=== PATIENT | male | born 1990 | race Two or more races ===

== ENCOUNTER 2017-09-16 01:22 | Inpatient (IN) | payer MEDICAID ==
[2017-09-16] MEDS ORDERED: NORMAL SALINE 1000 ML 1,000 ML IV PRN ×3 (02:13→03:29)
--- NOTE | 2017-09-16 02:17 | ER Document Report ---
ED General - General Chief Complaint: Nausea Stated Complaint: DIZZY Time Seen by Provider: 09/16/17 02:11 Mode of Arrival: Stretcher Information source: Patient Notes: This is a 27-year-old man with a history of diabetes, DKA, depression that presents to the emergency room after fainting. Patient states he drank a Mountain Dew from the [employer] store and that the seal had been broken. He states he drank the soda at 5:30 PM he states later this evening, he felt weak and wobbly and briefly fainted at home. He denies any chest pain, abdominal pain or headache at this time. His medical history: Insulin requiring diabetes (on an insulin pump) Left eye blind Hypertension Depression Allergies: Penicillin TRAVEL OUTSIDE OF THE [place] IN LAST 30 DAYS: No - HPI Onset: Just prior to arrival Onset/Duration: Gradual Quality of pain: No pain Severity: None Pain Level: Denies Associated symptoms: denies: Chest pain, Fever, Shortness of breath Exacerbated by: Denies Relieved by: Denies Similar symptoms previously: Yes Recently seen / treated by doctor: Yes - Related Data Allergies/Adverse Reactions: Soap [From Betadine] Allergy (Mild, Verified 10/23/11 15:16) Hives Penicillins Allergy (Verified 06/29/15 11:19) povidone-iodine [From Betadine] Adverse Reaction (Mild, Verified 06/29/15 11:19) Hives bee Allergy (Uncoded 10/23/11 15:16) Past Medical History - General Information source: Patient - Social History Smoking Status: Never Smoker Cigarette use (# per day): No Chew tobacco use (# tins/day): No Frequency of alcohol use: None Drug Abuse: None Lives with: Spouse/Significant other Family History: Reviewed & Not Pertinent Patient has suicidal ideation: No Patient has homicidal ideation: No - Past Medical History Cardiac Medical History: Reports: None Pulmonary Medical History: Denies: Hx Tuberculosis Neurological Medical History: Denies: Hx Seizures Endocrine Medical History: Reports: Hx Diabetes Mellitus Type 1 Psychiatric Medical History: Reports: Hx Depression Traumatic Medical History: Reports: Hx Fractures - BILAT ANKLES Surgical Hx: Negative Past Surgical History: Denies: Hx Pacemaker - Immunizations Hx Pneumococcal Vaccination: 10/25/11 Review of Systems - Review of Systems Constitutional: denies: Chills, Fever EENT: No symptoms reported Cardiovascular: See HPI Respiratory: No symptoms reported Gastrointestinal: No symptoms reported Genitourinary: No symptoms reported Male Genitourinary: No symptoms reported Musculoskeletal: No symptoms reported Skin: No symptoms reported Hematologic/Lymphatic: No symptoms reported Neurological/Psychological: No symptoms reported Physical Exam - Vital signs Vitals: Pulse BP Pulse Ox 121 H 70/32 L 99 09/16/17 01:35 09/16/17 01:35 09/16/17 01:35 Notes: Physical exam: GENERAL: 27-year-old man, alert and oriented 3, orthostatic HEAD: Atraumatic, normocephalic. EYES: Pupils equal round and reactive to light, extraocular movements intact, sclera anicteric, conjunctiva are normal. ENT: TMs normal, nares patent, oropharynx clear without exudates. Moist mucous membranes. NECK: Normal range of motion, supple without obvious mass or JVD. LUNGS: Breath sounds clear to auscultation bilaterally and equal. No wheezes rales or rhonchi. HEART: Regular rate and rhythm without murmurs, rubs or gallops. ABDOMEN: Soft, normoactive bowel sounds. No tenderness to palpation. No guarding, no rebound. No masses appreciated. EXTREMITIES: Normal range of motion, no pitting or edema. No clubbing or cyanosis. NEUROLOGICAL: Cranial nerves II through XII grossly intact. Normal speech, moving all extremities. PSYCH: Normal mood, normal affect. SKIN: Warm, Dry, normal turgor, no rashes or lesions noted. Course - Re-evaluation Re-evalutation: 09/16/17 03:27 On reassessment, the patient is starting to feel better. His blood pressure is 100/63 with a pulse of 95. His oxygen saturation is 99% on room air is respiratory rate is 18. His labs do show some acute renal failure component. I think he probably became volume depleted and continued with his antihypertensive medicines making him hypotensive. I think this contributed to both his acute renal failure as well as his syncopal episode this evening. In any event, he has not had any evidence of infection or any abdominal pain. Plan will be to hold the CECE inhibitor and continue the IV fluids and follow his kidney function. 09/16/17 03:30 Note: Patient's blood sugar was 64. He is requesting to eat and drink and we will allow him to do so. - Vital Signs Vital signs: Temp Pulse Resp BP Pulse Ox 121 H 70/32 L 99 09/16/17 01:35 09/16/17 01:35 09/16/17 01:35 - Laboratory Result Diagrams: 09/16/17 02:38 09/16/17 02:38 Laboratory results interpreted by me: 09/16/17 09/16/17 02:38 02:38 WBC 10.8 H BUN 27 H Creatinine 2.09 H Est GFR ( Amer) 46 L Est GFR (Non-Af Amer) 38 L Glucose 64 L ALT 13 L - EKG Interpretation by Me Rate: Normal Rhythm: NSR - EKG shows normal sinus rhythm with a ventricular rate of 96, no acute ST-T wave changes Discharge - Discharge Clinical Impression: Orthostatic hypotension, Syncope, Acute renal failure Condition: Stable Disposition: ADMITTED INPATIENT Admitting Provider: Hospitalist - Dr Card Unit Admitted: Telemetry Referrals: LORA FARIA MD [Primary Care Provider] - Follow up as needed
[2017-09-16 02:55] LABS: ABSOLUTE BASOPHILS # (AUTO) 0.1 10^3/uL (0.0-0.2); ABSOLUTE EOSINOPHILS # (AUTO) 0.1 10^3/uL (0.0-0.6); ABSOLUTE MONOCYTES (AUTO) 1.2 10^3/uL (0.1-1.4); ABSOLUTE NEUT (AUTO) 7.4 10^3/uL (1.7-8.2); BASOPHILS % (AUTO) 0.6 % (0-2); EOSINOPHILS % (AUTO) 1.2 % (0-6); HEMATOCRIT 40.1 % (37.9-51.0); HEMOGLOBIN 13.9 g/dL (13.5-17.0); LYMPHOCYTES % (AUTO) 18.5 % (13-45); MEAN CORPUSCULAR HEMOGLOBIN 30.7 pg (27.0-33.4); MEAN CORPUSCULAR HGB CONC 34.5 g/dL (32.0-36.0); MEAN CORPUSCULAR VOLUME 89 fl (80-97); MONOCYTES % (AUTO) 11.5 % (3-13); PLATELET COUNT 392 10^3/uL (150-450); RED BLOOD COUNT 4.51 10^6/uL (4.35-5.55); RED CELL DISTRIBUTION WIDTH 13.8 % (11.5-14.0); SEGMENTED NEUTROPHILS % (AUTO) 68.2 % (42-78); TOTAL CELLS COUNTED % (AUTO) 100 %; WHITE BLOOD COUNT 10.8 10^3/uL (4.0-10.5)
[2017-09-16 03:15] LABS: ALANINE AMINOTRANSFERASE 13 U/L (21-72); ALBUMIN 3.8 g/dL (3.5-5.0); ALKALINE PHOSPHATASE 96 U/L (38-126); ANION GAP 15 (5-19); ASPARTATE AMINO TRANSFERASE 25 U/L (17-59); BILIRUBIN,DIRECT 0.2 mg/dL (0.0-0.4); BILIRUBIN,TOTAL 0.2 mg/dL (0.2-1.3); BLOOD UREA NITROGEN 27 mg/dL (7-20); CARBON DIOXIDE 27 mmol/L (22-30); CHLORIDE 102 mmol/L (98-107); GLUCOSE 64 mg/dL (75-110); POTASSIUM 3.6 mmol/L (3.6-5.0); SODIUM 144.4 mmol/L (137-145)
[2017-09-16] MEDS ORDERED: ALBUTEROL SULFATE 0.083% NEB 2.5 MG/3 ML AMPUL NEB PRN (03:28)
[2017-09-16] MEDS ORDERED: PROMETHAZINE HCL INJ 25 MG/1 ML VIAL IV PRN (03:28)
[2017-09-16] MEDS ORDERED: NICOTINE 14 MG/24 HR PATCH.TD24 TD PRN (05:17)
[2017-09-16] MEDS ORDERED: DEXTROSE 40% GEL 15 GM TUBE PO PRN ×2 (05:18)
[2017-09-16] MEDS ORDERED: GLUCAGON,HUMAN RECOMB 1 MG INJ IM PRN (05:18)
[2017-09-16] MEDS ORDERED: DEXTROSE 50%-WATER 25 GM/50 ML DISP.SYRIN IV PRN ×2 (05:18)
--- NOTE | 2017-09-16 05:34 | RADIOLOGY REPORT (SQ) ---
EXAM DESCRIPTION: CHEST SINGLE VIEW CLINICAL HISTORY: 27 years Male, near syncope COMPARISON: June 30, 2015 FINDINGS: Normal lung volume, clear parenchyma, normal cardiac silhouette, and intact bony thorax. IMPRESSION: No acute cardiopulmonary findings.
--- NOTE | 2017-09-16 05:55 | PDOC H&P ---
History of Present Illness Admission Date/PCP: LORA FARIA MD Patient complains of: Syncope and collapse 1. History of Present Illness: YANET CHATMAN is a 27 year old male smoker with history of type 1 diabetes mellitus (brittle diabetic on insulin pump) and hypertension was admitted with above-mentioned complaint. The patient's mentation seems to be slow so I am not sure about the accuracy of his history. He said that around 5 PM his humolog insulin pump alerted him that his blood sugar was 32. He started drinking Mountain Dew but he lost consciousness. When he recovered, his friend helped him up. taking to help him get out. He denies any fever, chills, chest pain, shortness of breath, cough, abdominal pain, diarrhea or constipation or any urinary symptoms. He just felt generally weak. In the ED, his temperature was not recorded, heart rate 121, respiratory rate 12 , blood pressure was 70/32 with oxygen saturation of 99% on room air. His WBC was 10.8 with hemoglobin of 13.9. His BUN/creatinine was 27/2.09 (up from 18/ 1.16 on 06/30/2015), his blood glucose was 64. His UA is pending but his chest x- ray did not show any acute findings. He received 1 L of normal saline with improvement of his blood pressure up to 100/63. Past Medical History Cardiac Medical History: Reports: None, Hypertension Pulmonary Medical History: Denies: Tuberculosis EENT Medical History: Reports: Eyes - left eye blindness (scheduled for surgery soon). Neurological Medical History: Denies: Seizures Endocrine Medical History: Reports: Diabetes Mellitus Type 1 Psychiatric Medical History: Reports: Depression Past Surgical History Past Surgical History: Reports: None Denies: Pacemaker Social History Lives with: Spouse/Significant other Smoking Status: Current Every Day Smoker Cigarettes Packs Per Day: 0.5 - 3 cigarettes a day for 11 years. Frequency of Alcohol Use: Rare Hx Recreational Drug Use: No - He smokes marijuana and last time he did he smoked was about a month ago. Hx Prescription Drug Abuse: No - Advance Directive Resuscitation Status: Full Code Family History Family History: Reviewed & Not Pertinent Parental Family History Reviewed: Yes - Maternal grandfather: CAD, Maternal aunt : Diabetes. Children Family History Reviewed: No Sibling(s) Family History Reviewed.: Yes Medication/Allergy Home Medications: Trazodone HCl 150 mg PO QHS 10/23/11 Azithromycin 500 mg PO DAILY #7 tablet 06/30/15 Fluticasone Propionate [Flonase Nasal [place] 50 Mcg/[place] 16 gm] 1 spray NASL Q12 #1 spray.pump 06/30/15 Lisinopril [Prinivil 10 mg Tablet] 10 mg PO Q12 #60 tablet 06/30/15 Loratadine [Claritin 10 mg Tablet] 10 mg PO QHS #30 tablet 06/30/15 Trazodone HCl [Desyrel] 100 mg PO QHS #30 tablet 06/30/15 Allergies/Adverse Reactions: Soap [From Betadine] Allergy (Mild, Verified 10/23/11 15:16) Hives Penicillins Allergy (Verified 06/29/15 11:19) povidone-iodine [From Betadine] Adverse Reaction (Mild, Verified 06/29/15 11:19) Hives bee Allergy (Uncoded 10/23/11 15:16) Review of Systems ROS unobtainable: Other - Pertinent positives and negatives as detailed in the HPI. Physical Exam Vital Signs: Temp Pulse Resp BP Pulse Ox 121 H 70/32 L 99 09/16/17 01:35 09/16/17 01:35 09/16/17 01:35 Intake & Output 09/14/17 09/15/17 09/16/17 06:59 06:59 06:59 Weight 60.5 kg General appearance: PRESENT: no acute distress Head exam: PRESENT: atraumatic, normocephalic Eye exam: PRESENT: PERRLA - right eye., other - left eye blindnes. Mouth exam: PRESENT: moist, neck supple Neck exam: PRESENT: full ROM. ABSENT: JVD Respiratory exam: PRESENT: clear to auscultation nikole. ABSENT: rales, rhonchi, wheezes Cardiovascular exam: PRESENT: +S1, +S2, tachycardia Pulses: PRESENT: normal dorsalis pedis pul GI/Abdominal exam: PRESENT: normal bowel sounds. ABSENT: distended, rebound, rigid, tenderness Rectal exam: PRESENT: deferred Neurological exam: PRESENT: alert, altered, awake, oriented to person, oriented to place, oriented to time, oriented to situation. ABSENT: CN II-XII grossly intact - Except CN II and III left eye., motor sensory deficit Skin exam: PRESENT: intact, warm. ABSENT: erythema, rash Results Laboratory Results: 09/16/17 02:38 09/16/17 02:38 09/16/17 09/16/17 02:38 02:38 WBC 10.8 H RBC 4.51 Hgb 13.9 Hct 40.1 MCV 89 MCH 30.7 MCHC 34.5 RDW 13.8 Plt Count 392 Seg Neutrophils % 68.2 Lymphocytes % 18.5 Monocytes % 11.5 Eosinophils % 1.2 Basophils % 0.6 Absolute Neutrophils 7.4 Absolute Lymphocytes 2.0 Absolute Monocytes 1.2 Absolute Eosinophils 0.1 Absolute Basophils 0.1 Sodium 144.4 Potassium 3.6 Chloride 102 Carbon Dioxide 27 Anion Gap 15 BUN 27 H Creatinine 2.09 H Est GFR ( Amer) 46 L Est GFR (Non-Af Amer) 38 L Glucose 64 L Calcium 10.0 Total Bilirubin 0.2 AST 25 ALT 13 L Alkaline Phosphatase 96 Total Protein 7.0 Albumin 3.8 Assessment & Plan - Diagnosis (1) Syncope and collapse Is this a current diagnosis for this admission?: Yes Plan: Secondary to orthostasis given hypotension on admission and/or hypoglycemia. We will continue aggressive hydration and hold lisinopril. According to the patient, he usually is hypertensive so will continue to monitor. (2) MARIA VICTORIA (acute kidney injury) Is this a current diagnosis for this admission?: Yes Plan: With creatinine of 2.09 up from 1.16 on 06/30/2015. Possibly secondary to prerenal and/or renal (ATN since hypotensive), questionable post renal. Will continue IV hydration and check UA, urine osm, sodium, creatinine and protein. Will recheck BMP after IV hydration and monitor kidney function and urine output. Will avoid nephrotoxic medications for now (holding lisinopril). (3) Type 1 diabetes mellitus Qualifiers: Diabetes mellitus complication status: with unspecified complications Qualified Code(s): E10.8 - Type 1 diabetes mellitus with unspecified complications Is this a current diagnosis for this admission?: Yes Plan: Brittle diabetic on Humalog pump. He may be noncompliant with his diabetic diet. The patient may use his own insulin pump. Accu-Cheks qACHS. (4) Hypotension Is this a current diagnosis for this admission?: Yes Plan: On admission, unclear etiology at this time. Will follow up UA and check UDS ( he has history of marijuana use). His chest x-ray did not show any acute findings. (5) Smoker Is this a current diagnosis for this admission?: Yes Plan: 3 cigarettes a day, he does not seem motivated to quit. Nicotine patch. - Time Time Spent: 50 to 70 Minutes - Inpatient Certification Based on my medical assessment, after consideration of the patient's comorbidities, presenting symptoms, or acuity I expect that the services needed warrant INPATIENT care.: Yes I certify that my determination is in accordance with my understanding of Medicare's requirements for reasonable and necessary INPATIENT services [42 CFR 412.3e].: Yes
[2017-09-16 06:12] LABS: APPEARANCE,URINE SLIGHTLY-CLOUDY; BILIRUBIN,URINE NEGATIVE (NEGATIVE); COLOR,URINE YELLOW; GLUCOSE, URINE >=500 mg/dL (NEGATIVE); KETONES,URINE NEGATIVE (NEGATIVE); LEUKOCYTE ESTERASE,URINE NEGATIVE (NEGATIVE); NITRITE,URINE NEGATIVE (NEGATIVE); PROTEIN,URINE >=500 mg/dL (NEGATIVE); URINE SPECIFIC GRAVITY 1.014; UROBILINOGEN,URINE NEGATIVE mg/dL (<2.0)
[2017-09-16 06:28] LABS: URINE AMPHETAMINES SCREEN NEGATIVE; URINE BARBITURATES SCREEN NEGATIVE; URINE BENZODIAZEPINES SCREEN NEGATIVE; URINE COCAINE SCREEN NEGATIVE; URINE MARIJUANA (THC) SCREEN NEGATIVE; URINE METHADONE SCREEN NEGATIVE; URINE PHENCYCLIDINE SCREEN NEGATIVE
[2017-09-16 06:58] LABS: URINE CREATININE 126.1 mg/dL (24-392)
[2017-09-16 07:05] LABS: URINE PROTEIN 346.8 mg/dL (<12)
--- NOTE | 2017-09-16 07:55 | EKG REPORT ---
SEVERITY:- ABNORMAL ECG - SINUS RHYTHM PROBABLE LEFT ATRIAL ABNORMALITY PROBABLE LEFT VENTRICULAR HYPERTROPHY PROLONGED QT INTERVAL : Confirmed by: Kaden Hankins MD 16-Sep-2017 07:54:46
[2017-09-16 11:06] LABS: BLOOD UREA NITROGEN 27 mg/dL (7-20); CALCIUM 9.4 mg/dL (8.4-10.2); CARBON DIOXIDE 27 mmol/L (22-30)
[2017-09-16 11:18] LABS: ANION GAP 11 (5-19); CHLORIDE 99 mmol/L (98-107); SODIUM 136.8 mmol/L (137-145)
[2017-09-16 11:20] LABS: POTASSIUM 5.5 mmol/L (3.6-5.0)
[2017-09-16 11:21] LABS: GLUCOSE 467 mg/dL (75-110)
--- NOTE | 2017-09-16 11:46 | PDOC PROGRESS REPORT ---
Subjective Progress Note for:: 09/16/17 Subjective:: I saw the patient today and he states that he is feeling much better than when he came into the hospital yesterday. His severe hyperglycemia has resolved. I spoke at length with the patient about how he manages his sugar at home. He states that he is frequently hospitalized at the Hospital in [place]. He follows with Dr. Mattie Hankins as his canned food reconditioning inspector he states that every time he goes into the hospital in [place] that they take him off of his pump in place him on Lantus and sliding scale insulin and get his blood sugars under good control and then send him out on his pump with the exact same readings as they have used before. He was initially asking if we could do that here in the hospital. After a long discussion with him we have made a decision to keep his pump in place. I would like for him to bolus as he normally would at home and have asked the nursing staff to tell the patient what his blood sugars are in for them to record his boluses as he takes them. I am reluctant to send him home on the exact same basal rates that he was on prior to coming into the hospital without making any changes as his blood sugar was in the low 20s. He states that yesterday he just did not feel well. He denies any recent fever chills. He states that he has recently quit smoking and he was commended for that. He has had no increased shortness of breath or cough. He has had no chest pain or heart palpitations. No nausea, vomiting or diarrhea. No abdominal pain. No urinary complaints. Reason For Visit: MARIA VICTORIA/NEAR SYNCOPE. Physical Exam Vital Signs: Temp Pulse Resp BP Pulse Ox 98.1 F 121 H 16 116/73 95 09/16/17 07:08 09/16/17 01:35 09/16/17 09:00 09/16/17 09:00 09/16/17 09:00 General appearance: PRESENT: thin, other - Somewhat ill-appearing Head exam: PRESENT: atraumatic, normocephalic Mouth exam: PRESENT: moist, tongue midline Respiratory exam: PRESENT: clear to auscultation nikole. ABSENT: rales, rhonchi, wheezes Cardiovascular exam: PRESENT: RRR. ABSENT: diastolic murmur, rubs, systolic murmur GI/Abdominal exam: PRESENT: normal bowel sounds, soft. ABSENT: distended, guarding, mass, organolmegaly, rebound, tenderness Rectal exam: PRESENT: deferred Extremities exam: PRESENT: full ROM. ABSENT: calf tenderness, clubbing, pedal edema Musculoskeletal exam: PRESENT: ambulatory Neurological exam: PRESENT: alert, awake, oriented to person, oriented to place , oriented to time, oriented to situation, CN II-XII grossly intact. ABSENT: motor sensory deficit Psychiatric exam: PRESENT: appropriate affect, normal mood. ABSENT: homicidal ideation, suicidal ideation Skin exam: PRESENT: dry, intact, warm. ABSENT: cyanosis, rash Results Laboratory Results: 09/16/17 10:26 09/16/17 09/16/17 09/16/17 04:16 04:16 10:26 Sodium 136.8 L Potassium 5.5 H D Chloride 99 Carbon Dioxide 27 Anion Gap 11 BUN 27 H Creatinine 1.81 H Est GFR ( Amer) 54 L Est GFR (Non-Af Amer) 45 L Glucose 467 H* Calcium 9.4 Phosphorus 5.0 H Urine Color YELLOW Urine Appearance SLIGHTLY-CLOUDY Urine pH 5.0 Ur Specific [place] 1.014 Urine Protein >=500 H Urine Glucose (UA) >=500 H Urine Ketones NEGATIVE Urine Blood SMALL H Urine Nitrite NEGATIVE Ur Leukocyte Esterase NEGATIVE Urine WBC (Auto) 5 Urine RBC (Auto) 1 Urine Osmolality 339 Impressions: Chest X-Ray 09/16/17 03:14 IMPRESSION: No acute cardiopulmonary findings. Assessment & Plan - Diagnosis (1) Encephalopathy Is this a current diagnosis for this admission?: Yes Plan: Secondary to severe hypotension and hypoglycemia. Resolved (2) Syncope Is this a current diagnosis for this admission?: Yes Plan: Likely due to severe hypotension. He has had no further episodes. (3) Acute renal failure Is this a current diagnosis for this admission?: Yes Plan: His records are reviewed. He usually does not have any underlying kidney disease. His acute renal failure could be due to volume depletion and ATN due to severe hypotension as well as CECE inhibitor. I repeated a chemistry panel this morning and his creatinine is down to 1.8. We will continue IV fluids today and check a level in the morning. He may need to start seeing a weigher and charger as an outpatient. (4) Hypoglycemia Is this a current diagnosis for this admission?: Yes Plan: The patient has very brittle diabetes. Please see discussion above. We are going to let the patient use his insulin pump as he normally would at home here in the hospital and see if he has any further severe hyperglycemia or hypoglycemic events. (5) Type 1 diabetes mellitus Qualifiers: Diabetes mellitus complication status: with unspecified complications Qualified Code(s): E10.8 - Type 1 diabetes mellitus with unspecified complications Is this a current diagnosis for this admission?: Yes Plan: He follows with Dr. Mattie Hankins in [place]. He apparently has a new insulin pump that would be arriving today as it was felt that his previous pump was not working properly. Certainly we need to get him back to her office as soon as possible when he gets out of the hospital. I am going to hold his CECE inhibitor for now due to his severe hypotension as well as his acute renal failure (6) Tobacco abuse Is this a current diagnosis for this admission?: Yes Plan: The patient states that he has quit smoking over the past 2 weeks. He is commended for this. He does not want to have a nicotine patch at this point (7) Full code status Is this a current diagnosis for this admission?: Yes - Time Time Spent with patient: 35 or more minutes - Inpatient Certification Medical Necessity: Other - Inpatient hospitalization remains necessary. The patient needs ongoing IV fluids. We need to see if he has any further events with his blood sugar either hypoglycemia or severe hyperglycemia on his current basal rates of his pump. If he improves he can likely be discharged tomorrow.
--- NOTE | 2017-09-16 12:41 | Physician Advisory Note ---
Physician Advisor ProgressNote .: Pursuant to the plan for [facility], I have reviewed the medical record for this patient. Physician Advisor Statement: Please consider documenting, if you agree: 1. "acute metabolic encephalopathy due to hypotension & hypogycemia, evidenced by " (or "ruled out", or ...) - Pt had syncope, then regained consciousness, & has been alert here from what this reviewer has seen - did he also have a time of encephalopathy too? Status: Medicaid pt, brittle DM-1 w/insulin pump, HTN on Prinivil, tobacco abuse 'til recently, Lt eye blindness, frequent hospitalizations presented at 01 :29 this AM with profound hypotension & tachycardia, orthostasis, after glucose monitor reported glc of 32, and despite drinking Mtn Dew he had weakness, & episode of syncope/LOC. After 1L IVF, pt started to feel somewhat better ( relatively speaking), w/ HR95, BP 100/63, with MARIA VICTORIA & glc of 64. After almost 12 hours of tx with IVF & glucose mgmt, pt's renal fn still far from his baseline of 1.16, & attending is concerned that the outpt basal dosing by insulin pump may be too high and precipitating repeated severe dangerous hypo/ hyperglycemia. Therefore, needs to monitor glc levels w/usual insulin tx by pump for at least 24 hours more in hospital to determine its current safety ( knowing, of course, that pt will likely not be as active while in hospital, so may still need less insulin basal during the day at home than he does in hospital) - as well as to respond to further dangerous hypo/hyperglycemia that develops. Currently severely hyperglycemic, still in MARIA VICTORIA, with mild acute hyponatremia now , & hyperkalemia (which may normalize with continued IVF not containing K). U/A indicates tremendous proteinuria. Pt still has recurrent tachycardia, still relatively hypotensive compared to his baseline (BP was 120s-150s/80s-100s during last adm), likely still quite volume depleted. Attending continuing IVF @150 to help MARIA VICTORIA/hyperkalemia, volume depletion, & hyperglycemia. Appropriate for Inpatient status. CK
[2017-09-17] MEDS: ACETAMINOPHEN 325 MG TABLET PO PRN (00:44)
[2017-09-17 07:48] LABS: HEMATOCRIT 35.9 % (37.9-51.0); HEMOGLOBIN 12.5 g/dL (13.5-17.0); MEAN CORPUSCULAR HEMOGLOBIN 30.7 pg (27.0-33.4); MEAN CORPUSCULAR HGB CONC 34.9 g/dL (32.0-36.0); MEAN CORPUSCULAR VOLUME 88 fl (80-97); PLATELET COUNT 345 10^3/uL (150-450); RED BLOOD COUNT 4.08 10^6/uL (4.35-5.55); RED CELL DISTRIBUTION WIDTH 13.7 % (11.5-14.0); WHITE BLOOD COUNT 6.2 10^3/uL (4.0-10.5)
[2017-09-17 08:10] LABS: ALANINE AMINOTRANSFERASE 17 U/L (21-72); ALBUMIN 3.4 g/dL (3.5-5.0); ALKALINE PHOSPHATASE 89 U/L (38-126); ANION GAP 9 (5-19); ASPARTATE AMINO TRANSFERASE 17 U/L (17-59); BILIRUBIN,DIRECT 0.3 mg/dL (0.0-0.4); BILIRUBIN,TOTAL 0.3 mg/dL (0.2-1.3); BLOOD UREA NITROGEN 25 mg/dL (7-20); CALCIUM 9.5 mg/dL (8.4-10.2); CARBON DIOXIDE 26 mmol/L (22-30); CHLORIDE 105 mmol/L (98-107); CHOLESTEROL 281.37 mg/dL (0-200); GLUCOSE 183 mg/dL (75-110); SODIUM 140.2 mmol/L (137-145); TOTAL PROTEIN 6.4 g/dL (6.3-8.2); TRIGLYCERIDES 139 mg/dL (<150)
[2017-09-17 08:20] LABS: DIRECT LDL 217 mg/dL (<100)
[2017-09-17 08:22] LABS: POTASSIUM 4.4 mmol/L (3.6-5.0)
[2017-09-17] MEDS ORDERED: INSULIN GLARGINE,HUM.REC.ANLOG 1,000 UNIT/10 ML UNIT SUBCUT ONE ×2 (08:37→10:00)
[2017-09-17] MEDS ORDERED: HYDRALAZINE HCL INJ/PF 20 MG/1 ML SDV ONE (08:37)
[2017-09-17] MEDS ORDERED: INSULIN LISPRO 100 UNIT/ML 3 ML VIAL ONE (08:38)
[2017-09-17] MEDS ORDERED: INSULIN GLARGINE,HUM.REC.ANLOG 300 UNIT/3 ML INSULN.PEN SUBCUT ONE (09:15)
[2017-09-17] MEDS ORDERED: INSULIN LISPRO 100 UNIT/ML 3 ML VIAL SUBCUT ONE ×2 (12:30→18:30)
--- NOTE | 2017-09-17 13:03 | EKG REPORT ---
SEVERITY:- ABNORMAL ECG - SINUS RHYTHM PROBABLE LEFT ATRIAL ABNORMALITY PROBABLE LEFT VENTRICULAR HYPERTROPHY : Confirmed by: Kaden Hankins MD 17-Sep-2017 13:03:11
[2017-09-17] MEDS: INSULIN LISPRO 100 UNIT/ML 3 ML VIAL SUBCUT PRN ×2 (17:48→22:05)
[2017-09-17] MEDS: ERYTHROMYCIN 0.5% OPH OINTMENT 3.5 GM TUBE OU SCH ×2 (17:49→22:05)
[2017-09-17] MEDS ORDERED: DEXTROSE 40% GEL 15 GM TUBE PO PRN (17:52)
--- NOTE | 2017-09-17 18:02 | PDOC PROGRESS REPORT ---
Subjective Progress Note for:: 09/17/17 Subjective:: The patient is an unfortunate 27-year-old male who is had diabetes mellitus since age 3. He is a brittle diabetic on an insulin pump. He follows with Dr. Hankins in [place] from endocrinology. The patient presented to the emergency room with severe hypoglycemia as well as hypotension. He was found to have an acute kidney injury and was referred for admission. The patient severe hypoglycemia has since resolved. Yesterday when I saw the patient I had a long discussion with him. Apparently there are some concerns about how well his current pump is working. A new one has been ordered and is supposed to be delivered to the house this week. He states that he has frequent hospitalizations in [place] and that they always place him on Lantus and sliding scale coverage in the hospital and send him home on his pump with no changes being made. The patient's blood sugar was in the low 20s. I initially suggested that we check his blood sugar and he boluses he would at home and we can see if we need to make some changes to his basal rates. He was in agreement with this. The patient's blood sugars have been remarkedly high over the past 24 hours. This morning he lost his insulin site and has no further supplies with him to replace. 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 He is in agreement with this. He states that he is feeling better since he came to the hospital. He has had no further dizzy spells. No further hypoglycemia. No fever chills. No chest pain, shortness of breath or cough. No nausea, vomiting or diarrhea. No dysuria or hematuria. He does have urinary frequency due to his hyperglycemia. Reason For Visit: MARIA VICTORIA/NEAR SYNCOPE. Physical Exam Vital Signs: Temp Pulse Resp BP Pulse Ox 98.5 F 93 18 157/100 H 98 09/17/17 16:21 09/17/17 16:21 09/17/17 16:21 09/17/17 16:21 09/17/17 16:21 Intake & Output 09/16/17 09/17/17 09/18/17 06:59 06:59 06:59 Intake Total 2466 660 Output Total 1600 2260 Balance 866 -1600 Weight 60.5 kg 60.5 kg Results Laboratory Results: 09/17/17 07:00 09/17/17 07:00 09/17/17 09/17/17 09/17/17 07:00 07:00 07:00 WBC 6.2 RBC 4.08 L Hgb 12.5 L Hct 35.9 L MCV 88 MCH 30.7 MCHC 34.9 RDW 13.7 Plt Count 345 Sodium 140.2 Potassium 4.4 D Chloride 105 Carbon Dioxide 26 Anion Gap 9 BUN 25 H Creatinine 1.48 H Est GFR ( Amer) > 60 Est GFR (Non-Af Amer) 56 L Glucose 183 H Calcium 9.5 Magnesium 2.0 Total Bilirubin 0.3 AST 17 ALT 17 L Alkaline Phosphatase 89 Total Protein 6.4 Albumin 3.4 L Triglycerides 139 Cholesterol 281.37 H LDL Cholesterol Direct 217 H VLDL Cholesterol 28.0 HDL Cholesterol 42 TSH 0.49 Impressions: Chest X-Ray 09/16/17 03:14 IMPRESSION: No acute cardiopulmonary findings. Assessment & Plan - Diagnosis (1) Type 1 diabetes mellitus Qualifiers: Diabetes mellitus complication status: with unspecified complications Qualified Code(s): E10.8 - Type 1 diabetes mellitus with unspecified complications Is this a current diagnosis for this admission?: Yes Plan: The patient has brittle type 1 diabetes. The patient has now lost his insulin pump site and has no further supplies with him here at the hospital. I am going to start the patient on 15 units of Lantus twice daily. The patient received 12 units this morning and his blood sugars have been remarkably uncontrolled all day long. He will receive 15 units this evening and again in the morning. We will start the patient on 10 units of NovoLog 3 times daily before meals and continue his sliding scale. We will see how much is 24 hour requirements are and make further adjustments tomorrow. (2) Encephalopathy Is this a current diagnosis for this admission?: Yes Plan: Secondary to severe hypotension and hypoglycemia. Resolved (3) Syncope Is this a current diagnosis for this admission?: Yes Plan: Likely due to severe hypotension. He has had no further episodes. (4) Acute renal failure Is this a current diagnosis for this admission?: Yes Plan: His records are reviewed. He usually does not have any underlying kidney disease. His acute renal failure could be due to volume depletion and ATN due to severe hypotension as well as CECE inhibitor. His creatinine is trending downward. We will continue IV fluids today and check a level in the morning. He may need to start seeing a nutrition aide as an outpatient. (5) Hypoglycemia Is this a current diagnosis for this admission?: Yes Plan: The patient has very brittle diabetes. Please see discussion above. Unfortunately we cannot use his insulin pump here in the hospital as we have no supplies. See discussion above. He has had no further hypoglycemic episodes. (6) Tobacco abuse Is this a current diagnosis for this admission?: Yes Plan: The patient states that he has quit smoking over the past 2 weeks. He is commended for this. He does not want to have a nicotine patch at this point (7) Full code status Is this a current diagnosis for this admission?: Yes - Time Time Spent with patient: 25-34 minutes - Inpatient Certification Medical Necessity: Other - Inpatient hospitalization remains necessary. The patient still has an acute kidney injury requiring parenteral fluids. His blood sugars are markedly uncontrolled and we are going to try to get him stabilized prior to him leaving the hospital. Timing of disposition will be determined by his clinical course. He does meet inpatient criteria and his status has been changed.
[2017-09-17] MEDS: INSULIN GLARGINE,HUM.REC.ANLOG 300 UNIT/3 ML INSULN.PEN SUBCUT SCH (22:05)
[2017-09-17] MEDS ORDERED: NITROGLYCERIN 2% OINTMENT 1 GM PACKET TP ONE ×2 (22:30→23:35)
[2017-09-17] MEDS ORDERED: NITROGLYCERIN 2% OINTMENT 1 GM PACKET ONE ×2 (22:47→23:32)
[2017-09-17 23:13] LABS: CREATINE KINASE MB 2.09 ng/mL (<4.55); TROPONIN I 0.101 ng/mL
[2017-09-17] MEDS ORDERED: CLOPIDOGREL BISULFATE 300 MG TABLET PO ONE (23:32)
[2017-09-17] MEDS ORDERED: METOPROLOL TARTRATE PF/INJ 5 MG/5 ML SDV IV ONE ×2 (23:32→23:35)
[2017-09-17] MEDS ORDERED: ASPIRIN 81 MG TABLET, CHEWABLE PO ONE (23:32)
[2017-09-17] MEDS ORDERED: CLOPIDOGREL BISULFATE 75 MG TABLET ONE (23:40)
[2017-09-17] MEDS ORDERED: ENOXAPARIN SODIUM INJ 60 MG/0.6 ML DISP.SYRIN SUBCUT ONE (23:45)
[2017-09-17] MEDS: MORPHINE SULFATE 10 MG/ML INJ IV PRN (23:47)
[2017-09-18 01:08] LABS: CREATINE KINASE MB 2.11 ng/mL (<4.55)
[2017-09-18 01:24] LABS: TROPONIN I 0.1 ng/mL
[2017-09-18] MEDS: ERYTHROMYCIN 0.5% OPH OINTMENT 3.5 GM TUBE OU SCH ×4 (02:20→22:22)
[2017-09-18] MEDS: MORPHINE SULFATE 10 MG/ML INJ IV PRN (04:06)
[2017-09-18 05:25] LABS: CREATINE KINASE MB 2.57 ng/mL (<4.55); TROPONIN I 0.104 ng/mL
--- NOTE | 2017-09-18 08:00 | EKG REPORT ---
SEVERITY:- NORMAL ECG - SINUS RHYTHM : Confirmed by: Kaden Hankins MD 18-Sep-2017 07:58:21
[2017-09-18] MEDS: INSULIN LISPRO 100 UNIT/ML 3 ML VIAL SUBCUT SCH ×3 (08:23→17:11)
[2017-09-18 09:27] LABS: APPEARANCE,URINE CLEAR; BILIRUBIN,URINE NEGATIVE (NEGATIVE); COLOR,URINE STRAW; GLUCOSE, URINE 50 mg/dL (NEGATIVE); KETONES,URINE NEGATIVE (NEGATIVE); LEUKOCYTE ESTERASE,URINE NEGATIVE (NEGATIVE); NITRITE,URINE NEGATIVE (NEGATIVE); PROTEIN,URINE >=500 mg/dL (NEGATIVE); URINE SPECIFIC GRAVITY 1.011; UROBILINOGEN,URINE NEGATIVE mg/dL (<2.0)
[2017-09-18] MEDS: ENOXAPARIN SODIUM INJ 60 MG/0.6 ML DISP.SYRIN SUBCUT SCH ×2 (11:34→22:22)
[2017-09-18] MEDS: INSULIN GLARGINE,HUM.REC.ANLOG 300 UNIT/3 ML INSULN.PEN SUBCUT SCH ×2 (11:34→22:22)
[2017-09-18] MEDS: METOCLOPRAMIDE HCL INJ/PF 10 MG/2 ML SDV IV SCH ×2 (11:43→17:12)
[2017-09-18] MEDS ORDERED: PROMETHAZINE HCL INJ 25 MG/1 ML VIAL IV PRN (12:00)
[2017-09-18] MEDS ORDERED: PANTOPRAZOLE SODIUM 40 MG VIAL IV ONE (16:00)
[2017-09-18] MEDS ORDERED: ATORVASTATIN CALCIUM 40 MG TABLET PO ONE (17:00)
[2017-09-18] MEDS ORDERED: (PENDING PHARMACY ID) (Trazodone Hcl [Desyrel] 100 MG) PO SCH (22:00)
[2017-09-18] MEDS ORDERED: TRAZODONE HCL 50 MG TABLET PO SCH (22:00)
[2017-09-19] MEDS: METOCLOPRAMIDE HCL INJ/PF 10 MG/2 ML SDV IV SCH ×5 (00:23→23:25)
[2017-09-19] MEDS: ERYTHROMYCIN 0.5% OPH OINTMENT 3.5 GM TUBE OU SCH ×4 (03:10→21:20)
[2017-09-19 05:52] LABS: HEMATOCRIT 37.4 % (37.9-51.0); HEMOGLOBIN 13.2 g/dL (13.5-17.0); MEAN CORPUSCULAR HEMOGLOBIN 31.1 pg (27.0-33.4); MEAN CORPUSCULAR HGB CONC 35.4 g/dL (32.0-36.0); MEAN CORPUSCULAR VOLUME 88 fl (80-97); PLATELET COUNT 297 10^3/uL (150-450); RED BLOOD COUNT 4.26 10^6/uL (4.35-5.55); RED CELL DISTRIBUTION WIDTH 13.8 % (11.5-14.0); WHITE BLOOD COUNT 5.9 10^3/uL (4.0-10.5)
[2017-09-19 06:13] LABS: ALBUMIN 3.5 g/dL (3.5-5.0); ANION GAP 14 (5-19); BLOOD UREA NITROGEN 37 mg/dL (7-20); CALCIUM 9.6 mg/dL (8.4-10.2); CARBON DIOXIDE 23 mmol/L (22-30); CHLORIDE 105 mmol/L (98-107); GLUCOSE 179 mg/dL (75-110); PHOSPHORUS 4.8 mg/dL (2.5-4.5); POTASSIUM 4.5 mmol/L (3.6-5.0)
[2017-09-19] MEDS: NORMAL SALINE 1000 ML 1,000 ML IV PRN (08:01)
[2017-09-19] MEDS ORDERED: (PENDING PHARMACY ID) (Buspirone Hcl [Buspar 5 Mg Tablet] 5 MG) PO SCH (10:00)
[2017-09-19] MEDS: INSULIN LISPRO 100 UNIT/ML 3 ML VIAL SUBCUT SCH ×3 (11:40→16:41)
[2017-09-19] MEDS: PANTOPRAZOLE SODIUM 40 MG VIAL IV SCH (11:53)
[2017-09-19] MEDS: BUSPIRONE HCL 10 MG TABLET PO SCH ×2 (13:21→13:22)
[2017-09-19] MEDS: LISINOPRIL 10 MG TABLET PO SCH (13:25)
[2017-09-19] MEDS: INSULIN GLARGINE,HUM.REC.ANLOG 300 UNIT/3 ML INSULN.PEN SUBCUT SCH ×2 (13:29→21:20)
[2017-09-19] MEDS: ENOXAPARIN SODIUM INJ 40 MG/0.4 ML DISP.SYRIN SUBCUT SCH (13:34)
[2017-09-19] MEDS: ENOXAPARIN SODIUM INJ 60 MG/0.6 ML DISP.SYRIN SUBCUT SCH (13:34)
[2017-09-19] MEDS: MORPHINE SULFATE 10 MG/ML INJ IV PRN (13:47)
--- NOTE | 2017-09-19 14:22 | PDOC PROGRESS REPORT ---
Subjective Progress Note for:: 09/18/17 Subjective:: Still complaining of abdominal pain, nausea and vomiting Reason For Visit: UNCONTROLLED DM, MARIA VICTORIA Physical Exam Vital Signs: Temp Pulse Resp BP Pulse Ox 98.5 F 96 16 164/110 H 96 09/19/17 08:03 09/19/17 13:30 09/19/17 04:18 09/19/17 13:50 09/19/17 13:30 Intake & Output 09/18/17 09/19/17 09/20/17 06:59 06:59 06:59 Intake Total 1860 3540 Output Total 3960 1641 Balance -2100 1899 Weight 134 lb 0.657 oz 129 lb 13.636 oz General appearance: PRESENT: no acute distress, thin Respiratory exam: PRESENT: clear to auscultation nikole Cardiovascular exam: PRESENT: RRR GI/Abdominal exam: PRESENT: soft, tenderness - Mild epigastric Musculoskeletal exam: PRESENT: normal inspection Neurological exam: PRESENT: awake Psychiatric exam: PRESENT: flat affect, other - Very slow processing Skin exam: PRESENT: warm Results Laboratory Results: 09/19/17 05:35 09/19/17 05:35 09/19/17 09/19/17 05:35 05:35 WBC 5.9 RBC 4.26 L Hgb 13.2 L Hct 37.4 L MCV 88 MCH 31.1 MCHC 35.4 RDW 13.8 Plt Count 297 Sodium 142.0 Potassium 4.5 Chloride 105 Carbon Dioxide 23 Anion Gap 14 BUN 37 H Creatinine 1.65 H Est GFR ( Amer) > 60 Est GFR (Non-Af Amer) 50 L Glucose 179 H Calcium 9.6 Phosphorus 4.8 H Magnesium 2.2 Albumin 3.5 09/17/17 09/17/17 09/18/17 22:42 22:42 00:23 Creatine Kinase 102 98 CK-MB (CK-2) 2.09 Troponin I 0.101 NT-Pro-B Natriuret Pep 09/18/17 09/18/17 09/18/17 00:23 04:45 04:45 Creatine Kinase 83 CK-MB (CK-2) 2.11 2.57 Troponin I 0.100 0.104 NT-Pro-B Natriuret Pep 09/19/17 05:35 Creatine Kinase CK-MB (CK-2) Troponin I NT-Pro-B Natriuret Pep 43 Impressions: Chest X-Ray 09/16/17 03:14 IMPRESSION: No acute cardiopulmonary findings. Assessment & Plan - Diagnosis (1) Nausea & vomiting Is this a current diagnosis for this admission?: Yes Plan: Probably from poorly controlled diabetes. Symptomatic treatment and optimize his diabetic control (2) Abdominal pain Qualifiers: Abdominal location: epigastric Qualified Code(s): R10.13 - Epigastric pain Is this a current diagnosis for this admission?: Yes Plan: I will put him on a PPI and get a gastric emptying study (3) Acute renal failure Is this a current diagnosis for this admission?: Yes Plan: Baseline creatinine appears to be about 1.2 - continue hydration (4) Syncope and collapse Is this a current diagnosis for this admission?: Yes Plan: Probably due to volume depletion plus/minus hypoglycemia (5) Type 1 diabetes mellitus Qualifiers: Diabetes mellitus complication status: with unspecified complications Qualified Code(s): E10.8 - Type 1 diabetes mellitus with unspecified complications Is this a current diagnosis for this admission?: Yes Plan: Apparently his insulin pump at home is broken. We will continue to adjust his medications here. Historically he has been very brittle.
--- NOTE | 2017-09-19 14:31 | PDOC PROGRESS REPORT ---
Subjective Progress Note for:: 09/19/17 Subjective:: Still complaining of abdominal pain and nausea Reason For Visit: UNCONTROLLED DM, MARIA VICTORIA Physical Exam Vital Signs: Temp Pulse Resp BP Pulse Ox 98.5 F 96 16 164/110 H 96 09/19/17 08:03 09/19/17 13:30 09/19/17 04:18 09/19/17 13:50 09/19/17 13:30 Intake & Output 09/18/17 09/19/17 09/20/17 06:59 06:59 06:59 Intake Total 1860 3540 Output Total 3960 1641 Balance -2100 1899 Weight 134 lb 0.657 oz 129 lb 13.636 oz General appearance: PRESENT: no acute distress, other - Lethargic Respiratory exam: PRESENT: clear to auscultation nikole Cardiovascular exam: PRESENT: RRR GI/Abdominal exam: PRESENT: normal bowel sounds, soft, tenderness - Mild in the epigastrium Musculoskeletal exam: PRESENT: normal inspection Neurological exam: PRESENT: alert Psychiatric exam: PRESENT: flat affect Skin exam: PRESENT: dry, warm Results Laboratory Results: 09/19/17 05:35 09/19/17 05:35 09/19/17 09/19/17 05:35 05:35 WBC 5.9 RBC 4.26 L Hgb 13.2 L Hct 37.4 L MCV 88 MCH 31.1 MCHC 35.4 RDW 13.8 Plt Count 297 Sodium 142.0 Potassium 4.5 Chloride 105 Carbon Dioxide 23 Anion Gap 14 BUN 37 H Creatinine 1.65 H Est GFR ( Amer) > 60 Est GFR (Non-Af Amer) 50 L Glucose 179 H Calcium 9.6 Phosphorus 4.8 H Magnesium 2.2 Albumin 3.5 09/17/17 09/17/17 09/18/17 22:42 22:42 00:23 Creatine Kinase 102 98 CK-MB (CK-2) 2.09 Troponin I 0.101 NT-Pro-B Natriuret Pep 09/18/17 09/18/17 09/18/17 00:23 04:45 04:45 Creatine Kinase 83 CK-MB (CK-2) 2.11 2.57 Troponin I 0.100 0.104 NT-Pro-B Natriuret Pep 09/19/17 05:35 Creatine Kinase CK-MB (CK-2) Troponin I NT-Pro-B Natriuret Pep 43 Impressions: Chest X-Ray 09/16/17 03:14 IMPRESSION: No acute cardiopulmonary findings. Assessment & Plan - Diagnosis (1) Nausea & vomiting Is this a current diagnosis for this admission?: Yes Plan: No vomiting reported today. Continue supportive care (2) Abdominal pain Qualifiers: Abdominal location: epigastric Qualified Code(s): R10.13 - Epigastric pain Is this a current diagnosis for this admission?: Yes Plan: Continue PPI and Reglan. Waiting for gastric emptying study to be read (3) Acute renal failure Is this a current diagnosis for this admission?: Yes Plan: Continue hydration and monitor (4) Type 1 diabetes mellitus Qualifiers: Diabetes mellitus complication status: with unspecified complications Qualified Code(s): E10.8 - Type 1 diabetes mellitus with unspecified complications Is this a current diagnosis for this admission?: Yes Plan: Apparently his insulin pump at home is broken. We will continue to adjust his medications here. Historically he has been very brittle. (5) Syncope and collapse Is this a current diagnosis for this admission?: Yes Plan: Probably due to volume depletion plus/minus hypoglycemia
[2017-09-19] MEDS ORDERED: ONDANSETRON HCL INJ/PF 4 MG/2 ML SDV IV PRN (14:33)
--- NOTE | 2017-09-19 14:39 | RADIOLOGY REPORT (SQ) ---
EXAM DESCRIPTION: NM GASTRIC EMPTYING STUDY COMPLETED DATE/TIME: 09/19/2017 2:15 pm REASON FOR STUDY: Persistent N/V, long uncont DM I COMPARISON: None. RADIONUCLIDE AND DOSE: 2.1 millicuries Tc-99m Sulfur Colloid. A wide variety of solid foods have been used. The route of agent administration: Oral. TECHNIQUE: Serial images acquired to 4 hours with each image recorded over a 30 minute time frame. I mage intensity values plotted with respect to time with linear regression algorithm. LIMITATIONS: None. FINDINGS: Patient was observed for 4 hours. Gastric emptying at 60 minutes was 30%. Gastric emptying at 90 minutes was 45%. Gastric emptying at 120 minutes was 59% Gastric emptying at 180 minutes with 80% Gastric emptying at 240 minutes was 100%. IMPRESSION: Decreased gastric emptying. TECHNICAL DOCUMENTATION: JOB ID: [id number] [employer]- All Rights Reserved Reading location - IP/workstation name: [email or web address]
[2017-09-19] MEDS ORDERED: MAG HYDROX/AL HYDROX/SIMETH SUSP 30 ML UDCUP PO ONE (17:00)
[2017-09-19] MEDS ORDERED: LORAZEPAM INJ 2 MG/1 ML VIAL IV ONE ×2 (17:00→23:15)
--- NOTE | 2017-09-19 18:27 | EKG REPORT ---
SEVERITY:- BORDERLINE ECG - SINUS TACHYCARDIA PROBABLE LEFT ATRIAL ABNORMALITY BORDERLINE T WAVE ABNORMALITIES : Confirmed by: Kaden Hankins MD 19-Sep-2017 18:27:10
[2017-09-19] MEDS: LURASIDONE HCL 40 MG TABLET PO SCH (19:38)
[2017-09-19] MEDS: PAROXETINE HCL 20 MG TABLET PO SCH (21:19)
[2017-09-19] MEDS: DIVALPROEX SODIUM 500 MG TAB.SR.24H PO SCH (21:19)
[2017-09-19] MEDS: ATORVASTATIN CALCIUM 40 MG TABLET PO SCH (21:19)
[2017-09-19] MEDS ORDERED: METOPROLOL TARTRATE PF/INJ 5 MG/5 ML SDV IV ONE ×2 (21:30→23:15)
[2017-09-19] MEDS ORDERED: MORPHINE SULFATE 10 MG/ML INJ IV ONE (22:00)
[2017-09-19] MEDS: TRAZODONE HCL 50 MG TABLET PO SCH (22:40)
[2017-09-19 23:36] LABS: CREATINE KINASE MB 3.44 ng/mL (<4.55); TROPONIN I 0.025 ng/mL
[2017-09-19 23:44] LABS: APPEARANCE,URINE CLEAR; BILIRUBIN,URINE NEGATIVE (NEGATIVE); COLOR,URINE STRAW; GLUCOSE, URINE 50 mg/dL (NEGATIVE); KETONES,URINE NEGATIVE (NEGATIVE); LEUKOCYTE ESTERASE,URINE NEGATIVE (NEGATIVE); NITRITE,URINE NEGATIVE (NEGATIVE); PROTEIN,URINE 100 mg/dL (NEGATIVE); URINE SPECIFIC GRAVITY 1.013; UROBILINOGEN,URINE NEGATIVE mg/dL (<2.0)
[2017-09-20] MEDS: ERYTHROMYCIN 0.5% OPH OINTMENT 3.5 GM TUBE OU SCH ×4 (03:40→20:41)
[2017-09-20] MEDS: METOCLOPRAMIDE HCL INJ/PF 10 MG/2 ML SDV IV SCH ×4 (05:25→23:04)
[2017-09-20 05:53] LABS: ALBUMIN 3.1 g/dL (3.5-5.0); ANION GAP 10 (5-19); BLOOD UREA NITROGEN 31 mg/dL (7-20); CALCIUM 9.2 mg/dL (8.4-10.2); CARBON DIOXIDE 26 mmol/L (22-30); CHLORIDE 105 mmol/L (98-107); GLUCOSE 140 mg/dL (75-110); PHOSPHORUS 5.4 mg/dL (2.5-4.5); POTASSIUM 4.5 mmol/L (3.6-5.0); SODIUM 141.4 mmol/L (137-145)
[2017-09-20] MEDS: NORMAL SALINE 1000 ML 1,000 ML IV PRN ×2 (06:30→17:47)
[2017-09-20] MEDS: INSULIN LISPRO 100 UNIT/ML 3 ML VIAL SUBCUT SCH ×3 (08:21→17:54)
[2017-09-20] MEDS: LISINOPRIL 10 MG TABLET PO SCH (11:37)
[2017-09-20] MEDS: DIVALPROEX SODIUM 500 MG TAB.SR.24H PO SCH ×2 (11:37→21:08)
[2017-09-20] MEDS: BUSPIRONE HCL 10 MG TABLET PO SCH ×2 (11:38)
[2017-09-20] MEDS: ENOXAPARIN SODIUM INJ 40 MG/0.4 ML DISP.SYRIN SUBCUT SCH (11:39)
[2017-09-20] MEDS: PANTOPRAZOLE SODIUM 40 MG VIAL IV SCH (11:40)
[2017-09-20] MEDS: INSULIN GLARGINE,HUM.REC.ANLOG 300 UNIT/3 ML INSULN.PEN SUBCUT SCH ×2 (11:47→21:08)
[2017-09-20] MEDS: ACETAMINOPHEN 325 MG TABLET PO PRN ×2 (11:49→18:02)
--- NOTE | 2017-09-20 14:11 | PDOC PROGRESS REPORT ---
Subjective Progress Note for:: 09/20/17 Subjective:: No current complaints. Reason For Visit: UNCONTROLLED DM, MARIA VICTORIA Physical Exam Vital Signs: Temp Pulse Resp BP Pulse Ox 98.3 F 110 H 12 124/71 100 09/20/17 12:03 09/20/17 12:03 09/20/17 12:03 09/20/17 12:03 09/20/17 12:03 Intake & Output 09/19/17 09/20/17 09/21/17 06:59 06:59 06:59 Intake Total 3540 2250 Output Total 1641 7555 Balance 1899 -325 Weight 129 lb 13.636 oz 137 lb 5.568 oz General appearance: PRESENT: no acute distress. ABSENT: cooperative Respiratory exam: PRESENT: clear to auscultation nikole Cardiovascular exam: PRESENT: RRR GI/Abdominal exam: PRESENT: normal bowel sounds, soft. ABSENT: tenderness Neurological exam: PRESENT: other - Continues to be somnolent around me although staff reports that he will get up and walk the halls Psychiatric exam: PRESENT: unusual affect Skin exam: PRESENT: warm Results Laboratory Results: 09/19/17 05:35 09/20/17 04:25 09/19/17 09/20/17 13:04 04:25 Sodium 141.4 Potassium 4.5 Chloride 105 Carbon Dioxide 26 Anion Gap 10 BUN 31 H Creatinine 1.59 H Est GFR ( Amer) > 60 Est GFR (Non-Af Amer) 52 L Glucose 140 H Calcium 9.2 Phosphorus 5.4 H Magnesium 2.1 Albumin 3.1 L Urine Color STRAW Urine Appearance CLEAR Urine pH 6.0 Ur Specific [place] 1.013 Urine Protein 100 H Urine Glucose (UA) 50 H Urine Ketones NEGATIVE Urine Blood MODERATE H Urine Nitrite NEGATIVE Ur Leukocyte Esterase NEGATIVE Urine WBC (Auto) 1 Urine RBC (Auto) 5 09/17/17 09/17/17 09/18/17 22:42 22:42 00:23 Creatine Kinase 102 98 CK-MB (CK-2) 2.09 Troponin I 0.101 NT-Pro-B Natriuret Pep 09/18/17 09/18/17 09/18/17 00:23 04:45 04:45 Creatine Kinase 83 CK-MB (CK-2) 2.11 2.57 Troponin I 0.100 0.104 NT-Pro-B Natriuret Pep 09/19/17 09/19/17 09/19/17 05:35 23:04 23:04 Creatine Kinase 85 CK-MB (CK-2) 3.44 Troponin I 0.025 NT-Pro-B Natriuret Pep 43 Impressions: Chest X-Ray 09/16/17 03:14 IMPRESSION: No acute cardiopulmonary findings. Gastric Emptying Nuclear Medicine 09/19/17 00:00 IMPRESSION: Decreased gastric emptying. Assessment & Plan - Diagnosis (1) Nausea & vomiting Is this a current diagnosis for this admission?: Yes Plan: Currently tolerating regular diet. Gastric emptying study showed moderately delayed emptying (2) Abdominal pain Qualifiers: Abdominal location: epigastric Qualified Code(s): R10.13 - Epigastric pain Is this a current diagnosis for this admission?: Yes Plan: Not currently problematic. Continue PPI and Reglan. (3) Acute renal failure Is this a current diagnosis for this admission?: Yes Plan: Continue hydration and monitor (4) Type 1 diabetes mellitus Qualifiers: Diabetes mellitus complication status: with unspecified complications Qualified Code(s): E10.8 - Type 1 diabetes mellitus with unspecified complications Is this a current diagnosis for this admission?: Yes Plan: Apparently his insulin pump at home is broken. We will continue to adjust his medications here. Historically he has been very brittle. Blood sugars dropped down last night. He was asymptomatic and they came up with juice. Continue to monitor now that he is eating better. (5) Syncope and collapse Is this a current diagnosis for this admission?: Yes (6) Schizophrenia Is this a current diagnosis for this admission?: Yes Plan: Apparently he does not routinely take his medications. Restarted what he is supposed to be on.
[2017-09-20] MEDS: LURASIDONE HCL 40 MG TABLET PO SCH (17:46)
[2017-09-20] MEDS ORDERED: METOPROLOL TARTRATE 50 MG TABLET PO ONE (20:30)
[2017-09-20] MEDS: TRAZODONE HCL 50 MG TABLET PO SCH (21:08)
[2017-09-20] MEDS: ATORVASTATIN CALCIUM 40 MG TABLET PO SCH (21:08)
[2017-09-20] MEDS: PAROXETINE HCL 20 MG TABLET PO SCH (21:08)
[2017-09-20] MEDS: INSULIN LISPRO 100 UNIT/ML 3 ML VIAL SUBCUT PRN (22:43)
[2017-09-21] MEDS: METOCLOPRAMIDE HCL INJ/PF 10 MG/2 ML SDV IV SCH ×4 (05:14→23:40)
[2017-09-21] MEDS: ERYTHROMYCIN 0.5% OPH OINTMENT 3.5 GM TUBE OU SCH ×4 (05:14→22:22)
[2017-09-21 06:58] LABS: ALBUMIN 3.3 g/dL (3.5-5.0); ANION GAP 13 (5-19); BLOOD UREA NITROGEN 36 mg/dL (7-20); CALCIUM 9.2 mg/dL (8.4-10.2); CARBON DIOXIDE 24 mmol/L (22-30); CHLORIDE 106 mmol/L (98-107); GLUCOSE 101 mg/dL (75-110); PHOSPHORUS 5.5 mg/dL (2.5-4.5); POTASSIUM 4.4 mmol/L (3.6-5.0); SODIUM 142.6 mmol/L (137-145)
[2017-09-21] MEDS: NORMAL SALINE 1000 ML 1,000 ML IV PRN (08:35)
[2017-09-21] MEDS: INSULIN LISPRO 100 UNIT/ML 3 ML VIAL SUBCUT SCH (08:40)
[2017-09-21] MEDS: BUSPIRONE HCL 10 MG TABLET PO SCH ×2 (09:50)
[2017-09-21] MEDS: METOPROLOL TARTRATE 50 MG TABLET PO SCH ×2 (09:50→22:22)
[2017-09-21] MEDS: DIVALPROEX SODIUM 500 MG TAB.SR.24H PO SCH ×2 (09:50→22:21)
[2017-09-21] MEDS: LISINOPRIL 10 MG TABLET PO SCH (09:51)
[2017-09-21] MEDS: ENOXAPARIN SODIUM INJ 40 MG/0.4 ML DISP.SYRIN SUBCUT SCH (09:51)
[2017-09-21] MEDS: PANTOPRAZOLE SODIUM 40 MG VIAL IV SCH (09:51)
[2017-09-21] MEDS: INSULIN GLARGINE,HUM.REC.ANLOG 300 UNIT/3 ML INSULN.PEN SUBCUT SCH (13:09)
--- NOTE | 2017-09-21 13:11 | PDOC PROGRESS REPORT ---
Subjective Progress Note for:: 09/21/17 Subjective:: Refusing to come out from under the covers today Reason For Visit: UNCONTROLLED DM, MARIA VICTORIA Physical Exam Vital Signs: Temp Pulse Resp BP Pulse Ox 97.4 F 84 12 148/88 H 98 09/21/17 08:33 09/21/17 08:33 09/21/17 08:33 09/21/17 08:33 09/21/17 08:33 Intake & Output 09/20/17 09/21/17 09/22/17 06:59 06:59 06:59 Intake Total 2250 2578 Output Total 2575 5380 Balance -325 -2372 Weight 137 lb 5.568 oz 137 lb 9.095 oz General appearance: PRESENT: no acute distress Respiratory exam: PRESENT: chest wall tenderness Cardiovascular exam: PRESENT: RRR GI/Abdominal exam: PRESENT: soft Neurological exam: PRESENT: other - Arousable. Skin exam: PRESENT: warm Results Laboratory Results: 09/19/17 05:35 09/21/17 06:28 09/21/17 06:28 Sodium 142.6 Potassium 4.4 Chloride 106 Carbon Dioxide 24 Anion Gap 13 BUN 36 H Creatinine 1.56 H Est GFR ( Amer) > 60 Est GFR (Non-Af Amer) 53 L Glucose 101 Calcium 9.2 Phosphorus 5.5 H Albumin 3.3 L 09/17/17 09/17/17 09/18/17 22:42 22:42 00:23 Creatine Kinase 102 98 CK-MB (CK-2) 2.09 Troponin I 0.101 NT-Pro-B Natriuret Pep 09/18/17 09/18/17 09/18/17 00:23 04:45 04:45 Creatine Kinase 83 CK-MB (CK-2) 2.11 2.57 Troponin I 0.100 0.104 NT-Pro-B Natriuret Pep 09/19/17 09/19/17 09/19/17 05:35 23:04 23:04 Creatine Kinase 85 CK-MB (CK-2) 3.44 Troponin I 0.025 NT-Pro-B Natriuret Pep 43 Impressions: Chest X-Ray 09/16/17 03:14 IMPRESSION: No acute cardiopulmonary findings. Gastric Emptying Nuclear Medicine 09/19/17 00:00 IMPRESSION: Decreased gastric emptying. Assessment & Plan - Diagnosis (1) Abdominal pain Qualifiers: Abdominal location: epigastric Qualified Code(s): R10.13 - Epigastric pain Is this a current diagnosis for this admission?: Yes Plan: Would appear to be chronic. Does not appear to be related to eating. Gastric emptying study showed mildly delayed emptying. Continue PPI and Reglan. (2) Acute renal failure Is this a current diagnosis for this admission?: Yes Plan: Seems to have plateaued. I will stop his IV fluids and continue to monitor (3) Type 1 diabetes mellitus Qualifiers: Diabetes mellitus complication status: with unspecified complications Qualified Code(s): E10.8 - Type 1 diabetes mellitus with unspecified complications Is this a current diagnosis for this admission?: Yes Plan: He does not eat with any regularity which has proven problematic with regulating his blood sugars. He is drop-down at some point every day corresponding to when he has not eaten. Often in the morning so I will decrease his at bedtime Lantus. (4) Schizophrenia Is this a current diagnosis for this admission?: Yes Plan: Apparently he does not routinely take his medications. Restarted what he is supposed to be on. Psychiatry consult pending. (5) Homeless single person Is this a current diagnosis for this admission?: Yes Plan: Had been staying with a good [employer]/friend, but case management has been informed that he cannot return there as they feel they cannot deal with his health issues.
[2017-09-21] MEDS ORDERED: INSULIN GLARGINE,HUM.REC.ANLOG 300 UNIT/3 ML INSULN.PEN SUBCUT ONE (14:15)
[2017-09-21] MEDS: INSULIN LISPRO 100 UNIT/ML 3 ML VIAL SUBCUT PRN (17:12)
[2017-09-21] MEDS: LURASIDONE HCL 40 MG TABLET PO SCH (17:13)
--- NOTE | 2017-09-21 17:15 | PSYCHOLOGICAL NOTE ---
Psych Note - Psych Note Psych Note: Reason for consult: Medication recommendations Contact permission: None Patient is a 27-year-old male. Patient reports he is having stress because of his finances. Patient reports that he is having difficulty sleeping because he is thinking about homelessness. Patient reports his family stopped talking to him 3 years ago "disowning him". Patient reports he has a past diagnosis of posttraumatic stress disorder. Patient reports his medications help his posttraumatic stress disorder. Patient reports he mainly wants medications to help him sleep because he gets "nightmares". Patient reports he plans to get back on his feet in the near future. Patient reports he has to come up with the plan so that he does not have to be homeless. Patient reports he did see social work and got the resources for homelessness. Patient reports he intends on using those resources. Patient reports he was able to get rest at the hospital and has been watching television. Patient reports he is feeling better and is "so so". Patient reports if he was not homeless things would be a lot better and states that his primary complaint right now is homelessness. Medication recommendations made by [facility] contracted provider Dr. Rl MD includes: Discontinue Latuda Discontinue Paxil Discontinue trazodone Begin clonidine 0.1 mg at night Continue all other medication Diagnosis: Per patient history (report)309.81 (F43.10) posttraumatic stress disorder Per chart review 295.70 schizoaffective disorder V60.0 (Z59.0) Homelessness Impression/plan: Patient is psychiatrically cleared for discharge. Recommendation for patient to follow-up with outpatient provider. Clinician observed patient's symptoms can be managed by utilizing resources provided by social work/discharge planning regarding homelessness. Clinician observed patient's primary complaint is homelessness. Clinician observed through comprehensive chart review patient is concerned about discharge due to the homelessness and is displaying behaviors associated with volitionally trying to sabotage discharge such as intermittent eating behaviors with knowledge that he has diabetes and being noncompliant with medication and nutrition recommendations made by his provider, giving inconsistent information to different providers, and intentionally not speaking with physicians when they are in his room to assess ( e.g. putting covers over his head) however not demonstrating these behaviors to clinician. It is our recommendation that social work continue with discharge planning. Attending hospitalists in agreement with plan. Consulted with Dr. Ledezma regarding the management and care of patient.
[2017-09-21] MEDS ORDERED: INSULIN GLARGINE,HUM.REC.ANLOG 300 UNIT/3 ML INSULN.PEN SUBCUT SCH (22:00)
[2017-09-21] MEDS: CLONIDINE HCL 0.1 MG TABLET PO SCH (22:21)
[2017-09-21] MEDS: ATORVASTATIN CALCIUM 40 MG TABLET PO SCH (22:22)
[2017-09-22] MEDS: ERYTHROMYCIN 0.5% OPH OINTMENT 3.5 GM TUBE OU SCH ×4 (02:26→22:41)
[2017-09-22 05:50] LABS: HEMATOCRIT 35.5 % (37.9-51.0); HEMOGLOBIN 12.3 g/dL (13.5-17.0); MEAN CORPUSCULAR HEMOGLOBIN 30.6 pg (27.0-33.4); MEAN CORPUSCULAR HGB CONC 34.6 g/dL (32.0-36.0); MEAN CORPUSCULAR VOLUME 88 fl (80-97); PLATELET COUNT 260 10^3/uL (150-450); RED BLOOD COUNT 4.01 10^6/uL (4.35-5.55); RED CELL DISTRIBUTION WIDTH 13.6 % (11.5-14.0); WHITE BLOOD COUNT 5.1 10^3/uL (4.0-10.5)
[2017-09-22] MEDS: METOCLOPRAMIDE HCL INJ/PF 10 MG/2 ML SDV IV SCH ×2 (06:33→11:14)
[2017-09-22] MEDS: INSULIN GLARGINE,HUM.REC.ANLOG 300 UNIT/3 ML INSULN.PEN SUBCUT SCH ×2 (07:37→22:41)
[2017-09-22] MEDS: DIVALPROEX SODIUM 500 MG TAB.SR.24H PO SCH ×2 (11:13→22:41)
[2017-09-22] MEDS: BUSPIRONE HCL 10 MG TABLET PO SCH ×2 (11:13)
[2017-09-22] MEDS: LISINOPRIL 10 MG TABLET PO SCH (11:14)
[2017-09-22] MEDS: METOPROLOL TARTRATE 50 MG TABLET PO SCH ×2 (11:14→22:41)
--- NOTE | 2017-09-22 12:57 | PDOC PROGRESS REPORT ---
Subjective Progress Note for:: 09/22/17 Subjective:: Continues to eat erratically. Glucose was low again this morning. Psychiatry input noted and appreciated Reason For Visit: UNCONTROLLED DM, MARIA VICTORIA Physical Exam Vital Signs: Temp Pulse Resp BP Pulse Ox 97.9 F 73 16 122/76 100 09/22/17 08:00 09/22/17 08:00 09/22/17 08:00 09/22/17 08:00 09/22/17 08:00 Intake & Output 09/21/17 09/22/17 09/23/17 06:59 06:59 06:59 Intake Total 2578 2556 Output Total 4950 2150 Balance -2372 406 Weight 137 lb 9.095 oz 136 lb 7.458 oz General appearance: PRESENT: no acute distress Respiratory exam: PRESENT: clear to auscultation nikole Cardiovascular exam: PRESENT: RRR GI/Abdominal exam: PRESENT: soft Neurological exam: PRESENT: awake Psychiatric exam: PRESENT: flat affect Skin exam: PRESENT: warm Results Laboratory Results: 09/22/17 04:44 09/21/17 06:28 09/22/17 04:44 WBC 5.1 RBC 4.01 L Hgb 12.3 L Hct 35.5 L MCV 88 MCH 30.6 MCHC 34.6 RDW 13.6 Plt Count 260 09/17/17 09/17/17 09/18/17 22:42 22:42 00:23 Creatine Kinase 102 98 CK-MB (CK-2) 2.09 Troponin I 0.101 NT-Pro-B Natriuret Pep 09/18/17 09/18/17 09/18/17 00:23 04:45 04:45 Creatine Kinase 83 CK-MB (CK-2) 2.11 2.57 Troponin I 0.100 0.104 NT-Pro-B Natriuret Pep 09/19/17 09/19/17 09/19/17 05:35 23:04 23:04 Creatine Kinase 85 CK-MB (CK-2) 3.44 Troponin I 0.025 NT-Pro-B Natriuret Pep 43 Impressions: Chest X-Ray 09/16/17 03:14 IMPRESSION: No acute cardiopulmonary findings. Gastric Emptying Nuclear Medicine 09/19/17 00:00 IMPRESSION: Decreased gastric emptying. Assessment & Plan - Diagnosis (1) Abdominal pain Qualifiers: Abdominal location: epigastric Qualified Code(s): R10.13 - Epigastric pain Is this a current diagnosis for this admission?: Yes Plan: Would appear to be chronic. Quite likely functional. Does not appear to be related to eating. Gastric emptying study showed mildly delayed emptying. Continue PPI and stop Reglan which does not appear to have helped. (2) Type 1 diabetes mellitus Qualifiers: Diabetes mellitus complication status: with unspecified complications Qualified Code(s): E10.8 - Type 1 diabetes mellitus with unspecified complications Is this a current diagnosis for this admission?: Yes Plan: He does not eat with any regularity which has proven problematic with regulating his blood sugars. He drops down at some point every day corresponding to when he has not eaten. Often in the morning so I will decrease his at bedtime Lantus again. (3) Schizophrenia Is this a current diagnosis for this admission?: Yes Plan: Restarted meds per psychiatry recommendations. They believe that his behavior is manipulative rather than a manifestation of his schizophrenia. (4) Homeless single person Is this a current diagnosis for this admission?: Yes
[2017-09-22] MEDS: ENOXAPARIN SODIUM INJ 40 MG/0.4 ML DISP.SYRIN SUBCUT SCH (13:09)
[2017-09-22] MEDS: INSULIN LISPRO 100 UNIT/ML 3 ML VIAL SUBCUT PRN ×2 (15:59→22:41)
[2017-09-22] MEDS: ATORVASTATIN CALCIUM 40 MG TABLET PO SCH (22:41)
[2017-09-22] MEDS: CLONIDINE HCL 0.1 MG TABLET PO SCH (22:42)
[2017-09-23] MEDS: ERYTHROMYCIN 0.5% OPH OINTMENT 3.5 GM TUBE OU SCH ×4 (02:06→22:52)
[2017-09-23] MEDS: INSULIN LISPRO 100 UNIT/ML 3 ML VIAL SUBCUT PRN ×3 (08:15→18:20)
[2017-09-23] MEDS: INSULIN GLARGINE,HUM.REC.ANLOG 300 UNIT/3 ML INSULN.PEN SUBCUT SCH ×2 (08:16→22:47)
[2017-09-23] MEDS: METOPROLOL TARTRATE 50 MG TABLET PO SCH ×2 (10:52→22:49)
[2017-09-23] MEDS: LISINOPRIL 10 MG TABLET PO SCH (10:52)
[2017-09-23] MEDS: DIVALPROEX SODIUM 500 MG TAB.SR.24H PO SCH ×2 (10:52→22:49)
[2017-09-23] MEDS: BUSPIRONE HCL 10 MG TABLET PO SCH ×2 (10:52)
[2017-09-23] MEDS: ENOXAPARIN SODIUM INJ 40 MG/0.4 ML DISP.SYRIN SUBCUT SCH (10:53)
--- NOTE | 2017-09-23 16:26 | PDOC PROGRESS REPORT ---
Subjective Progress Note for:: 09/23/17 Subjective:: Called Adult Protective Services today and told them that he intended to harm himself. I had psychiatry come up and reevaluated by informed that he admitted that he did that that he could stay in the hospital. He continues to eat erratically in order to make his diabetes management problematic. Reason For Visit: UNCONTROLLED DM, MARIA VICTORIA Physical Exam Vital Signs: Temp Pulse Resp BP Pulse Ox 98.2 F 79 16 145/90 H 100 09/23/17 16:00 09/23/17 16:00 09/23/17 16:00 09/23/17 16:00 09/23/17 16:00 Intake & Output 09/22/17 09/23/17 09/24/17 06:59 06:59 06:59 Intake Total 2556 1410 Output Total 2150 900 Balance 406 510 Weight 136 lb 7.458 oz General appearance: PRESENT: no acute distress Respiratory exam: PRESENT: clear to auscultation nikole Cardiovascular exam: PRESENT: RRR GI/Abdominal exam: PRESENT: soft Neurological exam: PRESENT: awake Skin exam: PRESENT: warm Results Laboratory Results: 09/22/17 04:44 09/21/17 06:28 09/17/17 09/17/17 09/18/17 22:42 22:42 00:23 Creatine Kinase 102 98 CK-MB (CK-2) 2.09 Troponin I 0.101 NT-Pro-B Natriuret Pep 09/18/17 09/18/17 09/18/17 00:23 04:45 04:45 Creatine Kinase 83 CK-MB (CK-2) 2.11 2.57 Troponin I 0.100 0.104 NT-Pro-B Natriuret Pep 09/19/17 09/19/17 09/19/17 05:35 23:04 23:04 Creatine Kinase 85 CK-MB (CK-2) 3.44 Troponin I 0.025 NT-Pro-B Natriuret Pep 43 Impressions: Chest X-Ray 09/16/17 03:14 IMPRESSION: No acute cardiopulmonary findings. Gastric Emptying Nuclear Medicine 09/19/17 00:00 IMPRESSION: Decreased gastric emptying. Assessment & Plan - Diagnosis (1) Type 1 diabetes mellitus Qualifiers: Diabetes mellitus complication status: with unspecified complications Qualified Code(s): E10.8 - Type 1 diabetes mellitus with unspecified complications Is this a current diagnosis for this admission?: Yes Plan: He does not eat with any regularity which has proven problematic with regulating his blood sugars. He drops down at some point every day corresponding to when he has not eaten. Blood sugars continue to bounce around, but have not been dangerously low. Continue present management Social work is trying to find him a residential (2) Homeless single person Is this a current diagnosis for this admission?: Yes Plan: Had been staying with a good Christianity/friend, but case management has been informed that he cannot return there as they feel they cannot deal with his health issues. (3) Personality disorder in adult Is this a current diagnosis for this admission?: Yes Plan: Extremely manipulative. It turns out that his diagnosis of schizophrenia comes from himself. He has been evaluated by psychiatry and was not placed on any antipsychotics. Continue Depakote as recommended.
[2017-09-23 16:30] LABS: APPEARANCE,URINE CLEAR; BILIRUBIN,URINE NEGATIVE (NEGATIVE); COLOR,URINE STRAW; GLUCOSE, URINE >=500 mg/dL (NEGATIVE); KETONES,URINE NEGATIVE (NEGATIVE); LEUKOCYTE ESTERASE,URINE NEGATIVE (NEGATIVE); NITRITE,URINE NEGATIVE (NEGATIVE); PROTEIN,URINE 100 mg/dL (NEGATIVE); URINE SPECIFIC GRAVITY 1.012; UROBILINOGEN,URINE NEGATIVE mg/dL (<2.0)
[2017-09-23] MEDS: ATORVASTATIN CALCIUM 40 MG TABLET PO SCH (22:49)
[2017-09-23] MEDS: CLONIDINE HCL 0.1 MG TABLET PO SCH (22:50)
[2017-09-24] MEDS: ERYTHROMYCIN 0.5% OPH OINTMENT 3.5 GM TUBE OU SCH ×2 (03:09→11:09)
[2017-09-24 07:01] LABS: HEMATOCRIT 35.4 % (37.9-51.0); MEAN CORPUSCULAR HEMOGLOBIN 30.2 pg (27.0-33.4); MEAN CORPUSCULAR HGB CONC 33.8 g/dL (32.0-36.0); MEAN CORPUSCULAR VOLUME 89 fl (80-97); PLATELET COUNT 221 10^3/uL (150-450); RED BLOOD COUNT 3.96 10^6/uL (4.35-5.55); RED CELL DISTRIBUTION WIDTH 13.4 % (11.5-14.0); WHITE BLOOD COUNT 4.2 10^3/uL (4.0-10.5)
[2017-09-24] MEDS: INSULIN GLARGINE,HUM.REC.ANLOG 300 UNIT/3 ML INSULN.PEN SUBCUT SCH (07:48)
[2017-09-24] MEDS ORDERED: INSULIN LISPRO 100 UNIT/ML 3 ML VIAL SUBCUT ONE ×3 (08:00→23:00)
[2017-09-24] MEDS: ENOXAPARIN SODIUM INJ 40 MG/0.4 ML DISP.SYRIN SUBCUT SCH (10:46)
[2017-09-24] MEDS: BUSPIRONE HCL 10 MG TABLET PO SCH ×2 (11:09)
[2017-09-24] MEDS: LISINOPRIL 10 MG TABLET PO SCH (11:09)
[2017-09-24] MEDS: METOPROLOL TARTRATE 50 MG TABLET PO SCH ×2 (11:09→21:39)
[2017-09-24] MEDS: DIVALPROEX SODIUM 500 MG TAB.SR.24H PO SCH (11:09)
--- NOTE | 2017-09-24 18:08 | PDOC PROGRESS REPORT ---
Subjective Progress Note for:: 09/24/17 Subjective:: Discharge planning is working on finding a fpc for him. Shelters only provide nighttime service and he will need monitoring with his insulin. Reason For Visit: UNCONTROLLED DM, MARIA VICTORIA Physical Exam Vital Signs: Temp Pulse Resp BP Pulse Ox 98.3 F 70 12 99/56 L 99 09/24/17 15:43 09/24/17 15:43 09/24/17 15:43 09/24/17 15:43 09/24/17 15:43 Intake & Output 09/23/17 09/24/17 09/25/17 06:59 06:59 06:59 Intake Total 1410 2150 666 Output Total 900 1110 Balance 510 1040 666 Weight 137 lb 2.04 oz General appearance: PRESENT: no acute distress. ABSENT: cooperative Respiratory exam: PRESENT: clear to auscultation nikole Cardiovascular exam: PRESENT: RRR GI/Abdominal exam: PRESENT: soft Neurological exam: PRESENT: other - As usual was hiding under the covers Skin exam: PRESENT: warm Results Laboratory Results: 09/24/17 06:25 09/21/17 06:28 09/24/17 06:25 WBC 4.2 RBC 3.96 L Hgb 12.0 L Hct 35.4 L MCV 89 MCH 30.2 MCHC 33.8 RDW 13.4 Plt Count 221 09/17/17 09/17/17 09/18/17 22:42 22:42 00:23 Creatine Kinase 102 98 CK-MB (CK-2) 2.09 Troponin I 0.101 NT-Pro-B Natriuret Pep 09/18/17 09/18/17 09/18/17 00:23 04:45 04:45 Creatine Kinase 83 CK-MB (CK-2) 2.11 2.57 Troponin I 0.100 0.104 NT-Pro-B Natriuret Pep 09/19/17 09/19/17 09/19/17 05:35 23:04 23:04 Creatine Kinase 85 CK-MB (CK-2) 3.44 Troponin I 0.025 NT-Pro-B Natriuret Pep 43 Impressions: Chest X-Ray 09/16/17 03:14 IMPRESSION: No acute cardiopulmonary findings. Gastric Emptying Nuclear Medicine 09/19/17 00:00 IMPRESSION: Decreased gastric emptying. Assessment & Plan - Diagnosis (1) Type 1 diabetes mellitus Qualifiers: Diabetes mellitus complication status: with unspecified complications Qualified Code(s): E10.8 - Type 1 diabetes mellitus with unspecified complications Is this a current diagnosis for this admission?: Yes Plan: He does not eat with any regularity which has proven problematic with regulating his blood sugars. He drops down at some point every day corresponding to when he has not eaten. Blood sugars continue to bounce around, but have not been dangerously low. When he is consistently his blood sugars are high. Continue present management Social work is trying to find him a fpc (2) Homeless single person Is this a current diagnosis for this admission?: Yes Plan: Had been staying with a good [employer]/friend, but case management has been informed that he cannot return there as they feel they cannot deal with his health issues. (3) Personality disorder in adult Is this a current diagnosis for this admission?: Yes Plan: Extremely manipulative. It turns out that his diagnosis of schizophrenia comes from himself. He has been evaluated by psychiatry and was not placed on any antipsychotics. Continue Depakote as recommended.
[2017-09-24] MEDS: ATORVASTATIN CALCIUM 40 MG TABLET PO SCH (21:40)
[2017-09-24] MEDS: INSULIN LISPRO 100 UNIT/ML 3 ML VIAL SUBCUT PRN (22:19)
[2017-09-25] MEDS: INSULIN GLARGINE,HUM.REC.ANLOG 300 UNIT/3 ML INSULN.PEN SUBCUT SCH ×2 (00:04→08:30)
[2017-09-25] MEDS: DIVALPROEX SODIUM 500 MG TAB.SR.24H PO SCH ×2 (00:04→10:44)
[2017-09-25] MEDS: CLONIDINE HCL 0.1 MG TABLET PO SCH (00:04)
[2017-09-25] MEDS: INSULIN LISPRO 100 UNIT/ML 3 ML VIAL SUBCUT PRN (08:28)
[2017-09-25] MEDS: BUSPIRONE HCL 10 MG TABLET PO SCH (10:43)
[2017-09-25] MEDS: LISINOPRIL 10 MG TABLET PO SCH (10:44)
[2017-09-25] MEDS: METOPROLOL TARTRATE 50 MG TABLET PO SCH (10:45)
[2017-09-25] MEDS: ENOXAPARIN SODIUM INJ 40 MG/0.4 ML DISP.SYRIN SUBCUT SCH (10:47)
[2017-09-25 13:19] VITALS: BP 114/72
[2017-09-26] MEDS ORDERED: BUSPIRONE HCL 10 MG TABLET PO SCH (10:00)
--- NOTE | 2017-09-27 00:19 | DISCHARGE SUMMARY E ---
Discharge Summary NAME: YANET CHATMAN : 1990 AGE: 27Y ADMITTED: 09/16/2017 DISCHARGED: 09/25/2017 CODE STATUS: FULL CODE. PRIMARY CARE PROVIDER: Mattie Hankins MD. DISCHARGE DIAGNOSES: Include: 1. Poorly controlled diabetes mellitus type 1. 2. Noncompliance. 3. Personality disorder in adult. 4. Hypertension. DISCHARGE MEDICATIONS: Include: 1. Lopressor 50 mg p.o. q.12 hours, #60 tablets, 0 refills. 2. Humalog sliding scale coverage before meals and at bedtime. 3. Lantus 50 units subcutaneously in the a.m. 4. Lantus 5 units subcutaneously in the evening. 5. Lisinopril 10 mg p.o. daily. 6. Depakote 500 mg p.o. q.12 hours. 7. BuSpar 5 mg p.o. daily. 8. BuSpar 10 mg p.o. daily. DIET: Diabetic. ACTIVITY: As tolerated. CONDITION: Good. DIAGNOSTICS: Lab values are as follows: Hematology obtained on 09/24/2017: WBCs are 4.2, hemoglobin is 12.0, hematocrit is 35.4, platelet count is 221,000. Chemistry obtained on 09/21/2017: Sodium is 142, potassium 4.0, chloride is 106, carbon dioxide 24, BUN 36, creatinine is 1.56, glucose 101, calcium is 9.2. Phosphorus 5.5. Albumin is 3.3. Triglycerides are 139. Cholesterol 281, LDL 317, VLDL is 28, HDL is 42. TSH is 0.49. Urinalysis obtained on 09/22/2017: Color: Straw. Appearance: Clear. The pH is 7.0, specific gravity is 1.002. Protein 100, glucose greater than 500, ketones negative, occult blood moderate, nitrite negative, bili negative, urobilinogen negative, leukocyte esterase is negative. WBCs 0, RBCs 2, mucus rare. Ascorbic acid is negative. Other body sources obtained on 09/22/2017: Stool for occult blood is negative. Toxicology obtained on 09/16/2017 is gonzalez negative. Chest x-ray obtained on 09/16/2017 reveals no acute cardiopulmonary findings. Gastric emptying study obtained on 09/19/2017 reveals decrease in gastric emptying. PHYSICAL EXAMINATION: GENERAL: On examination, the patient is a well-developed, well-nourished, 27-year-old male, who is awake, alert and oriented to person, place, time and situation. He is verbal, conversational. Does not appear to be in any acute distress. VITAL SIGNS: Temperature is 98.3, pulse 72, respirations 19, blood pressure 145/90, oxygen saturation 100% on room air. SKIN: Warm and dry. No rash. Not diaphoretic. HEENT: Pupils equal, round and reactive to light and accommodation. Conjunctivae are pink. There is no evidence of JVP. CVS: Heart is regular. There is no murmur or rub. CHEST: Clear, symmetrical, unlabored. ABDOMEN: Soft, nontender, nondistended. BACK: No CVA tenderness or sacral edema. EXTREMITIES: No clubbing, cyanosis or edema. PSYCHIATRIC: The patient is easily agitated. HISTORY OF PRESENT ILLNESS: The patient is a 27-year-old male with a past medical history of diabetes mellitus type 1. The patient presented to the emergency department with a chief complaint of syncope and collapse. The patient is a smoker and also has diabetes. Describes himself as a brittle diabetic and has an insulin pump. The patient was admitted after having a syncopal episode. The patient said that at approximately 1700, his insulin pump alerted him that his blood sugar was 32. The patient started drinking Mountain Dew, but lost consciousness. When he recovered, his friend helped him up, taking him to the emergency department. The patient denied any fever, chills. No chest pain, no shortness of breath, cough. No abdominal pain, diarrhea, constipation or any urinary symptoms. He just felt generally weak. While in the emergency department, patient was found to be tachycardic, with a heart rate of 121 and a respiratory rate of 12, a blood pressure that was 70/32, with an O2 sat of 99% on room air. The patient's white count was found to be 10.8, hemoglobin 30.9. Patient's BUN and creatinine were 27 and 2.09. His glucose was 64. Chest x-ray did not show any acute findings. The patient was bolused a liter of saline, and his blood pressures improved to 100/63, and the patient was referred to the hospitalist for admission and management. HOSPITAL COURSE: The patient was admitted to a continuous telemetry unit. The patient was aggressively hydrated from a volume standpoint and was also discontinued from his insulin pump, due to concerns of malfunction. He was placed on subcutaneous insulin, with basal doses of Lantus. The patient tolerated this well, without issue. The patient's behaviors were felt to be quite manipulative, as the patient would refuse to eat, further making his glucose difficult to control. The patient had voiced possible concerns of suicidal ideation. The patient was seen and evaluated by Psych, who did not concur that he was a threat. I, myself, discussed this with patient in detail, and he said that it was "a stupid comment." The patient denied any active suicidal/homicidal ideation. Stated that he had said that in an effort to remain in the hospital. The patient denied any intent to harm himself or to harm others, and is absolutely adamant that he would not act upon such actions. The patient even denies having a plan. The patient was noted to be quite angry, stating that he wanted access to his phone, and was irritated with nursing staff, and threatened to leave against medical advice. Although the patient has been referred to [facility], given his homelessness with chronic illness, the patient is completely competent. He is alert. He is oriented to person, place, time and situation. Does have full insight to his situation. He does not express suicidal ideations, and therefore is able to make that decision. In an effort to ensure the patient has appropriate prescriptions and so forth, we will discharge him. The patient is agreeable to followup. DISCHARGE PLAN: The patient is to follow up with his primary care provider within 1 week for hospital followup. Time spent on this discharge, including assessment, plan, physical examination, patient education and review of records, is 35 minutes. DICTATING PHYSICIAN: KAMARI MEIER NP [id number] PHY#: [id number] ID: [id number] JOB#: [id number] ACCT: [id number] cc:Mayo JORDAN NP >
== END 2017-09-25 16:51 | disposition home or self-care (01) | DRG 684 ==
LOC: ER 01:22 → EH 03:35 → 5 17:11
PROVIDERS: ADMIT Internal Medicine Geriatric Medicine; ATTEND Internal Medicine Geriatric Medicine
DX: N17.9 Acute kidney failure, unspecified (principal); E10.649 Type 1 diabetes mellitus with hypoglycemia without coma; E10.65 Type 1 diabetes mellitus with hyperglycemia; I95.1 Orthostatic hypotension; I10 Essential (primary) hypertension; R42 Dizziness and giddiness; F32.9 Major depressive disorder, single episode, unspecified; F20.9 Schizophrenia, unspecified; F60.9 Personality disorder, unspecified; H54.62 Unqualified visual loss, left eye, normal vision right eye; F17.210 Nicotine dependence, cigarettes, uncomplicated; Z96.41 Presence of insulin pump (external) (internal); Z88.0 Allergy status to penicillin; Z79.4 Long term (current) use of insulin; Z59.0 Homelessness; Z91.19 Patient's noncompliance with other medical treatment and regimen
CPT/HCPCS: 36415; 71045; 78264; 80048; 80053; 80061; 80069; 80307; 81001; 82272; 82550; 82553; 82570; 82962; 83036; 83735; 83880; 83935; 84100; 84156; 84300; 84443; 84484; 85025; 85027; 93005; 93010; 99285; A9541; J0360; J1650; J1815; J2060; J2270; J2550; J2765; J3490; J7030; S0164